=== PATIENT | male | born 1955 | race Caucasian/White ===

== ENCOUNTER 2023-12-24 16:18 | Outpatient (CLI) | payer OTHER, SELFPAY | END 2023-12-24 16:19 | disposition home or self-care (01) | PROVIDERS: PCP Family Medicine; Visit Provider Family Medicine | DX: R03.0 Elevated blood-pressure reading, without diagnosis of hypertension (principal); E78.00 Pure hypercholesterolemia, unspecified; M10.9 Gout, unspecified; Z12.5 Encounter for screening for malignant neoplasm of prostate | CPT/HCPCS: 80053; 80061; 84550; G0103 ==

== ENCOUNTER 2024-01-21 12:24 | Outpatient (CLI) | payer MEDICARE, SELFPAY | END 2024-01-21 12:25 | disposition home or self-care (01) | PROVIDERS: PCP Family Medicine; Visit Provider Family Medicine | DX: Z13.21 Encounter for screening for nutritional disorder (principal); G62.9 Polyneuropathy, unspecified; I10 Essential (primary) hypertension | CPT/HCPCS: 82607; 84443 ==

== ENCOUNTER 2024-01-23 08:02 | Outpatient (CLI) | payer MEDICARE, SELFPAY ==
--- NOTE | 2024-01-23 08:15 | US_ITS ---
Patient: ELISABETH RODAS Facility:?[facility] Patient ID:?[id number] Site Patient ID:?[id number]. Site :?[id number] Study:?US-Abdomen Abdomen Complete-01/23/2024 9:29:15 AM Ordering Physician:Veto Beach Final Report: CLINICAL HISTORY: Abdominal pain FINDINGS: The liver is enlarged measuring 17.2 centimeters increased echogenicity of the liver small cyst in the left hepatic lobe. Slightly nodular contour to liver which can be seen with cirrhosis. Multiple small hyperechoic lesions in the spleen measuring up to approximately 1.2 centimeters. The pancreas poorly seen. The proximal abdominal aorta and IVC appear normal. There is no evidence of ascites. The gallbladder is of normal size and there is no evidence of sludge or stones within the gallbladder lumen. The gallbladder wall measures 2 mm in thickness. The common bile duct measures 5 mm in size within the tessie hepatis. The kidneys appear symmetric. The right kidney measures 12.1 cm in length and the left kidney measures 12.2 cm. There is no evidence of a renal calculus or hydronephrosis. IMPRESSION: 1. Hepatomegaly with hepatic steatosis. Nodular contour to liver which could be seen with cirrhosis. 2. Nonspecific multiple small hyperechoic lesions in the spleen likely benign in the absence of known malignancy.. Dictated by Rosa Phillips MD @ 01/24/2024 6:42:32 AM Signed by:?Rosa Phillips MD @01/25/2024 1:17:17 PM (Electronic Signature)
== END 2024-01-23 08:03 | disposition home or self-care (01) ==
LOC: US 08:04
PROVIDERS: PCP Family Medicine; Visit Provider Family Medicine
DX: R10.9 Unspecified abdominal pain (principal); K76.0 Fatty (change of) liver, not elsewhere classified; D73.89 Other diseases of spleen
CPT/HCPCS: 76700

== ENCOUNTER 2024-02-12 15:27 | Outpatient (CLI) | payer MEDICARE, SELFPAY ==
[2024-02-12 15:50] LABS: Creatinine* 0.8 mg/dL (0.5-1.5); Estimated Glomerular Filt Rate 96 ml/min
--- NOTE | 2024-02-12 16:00 | CRLHL7_ITS ---
For Patients: As a result of the Century Cures Act, medical imaging exams and procedure reports are released immediately into your electronic medical record. You may view this report before your referring provider. If you have questions, please contact your health care provider. INDICATION: Abdominal pain. Liver abnormality seen on ultrasound. TECHNIQUE: CT abdomen and pelvis acquired with IV contrast. Contrast dose was not recorded COMPARISON: 01/23/2024 ultrasound FINDINGS: Lower chest: Unremarkable. Liver: Diffuse hepatic steatosis. 2 cm well-circumscribed low-density lesion in the left hepatic lobe nonspecific on this study but consistent with a cyst on the ultrasound. Gallbladder and bile ducts: Unremarkable. No stones or inflammation. No biliary dilatation. Pancreas: Unremarkable. No mass or inflammation. Spleen: Numerous very small, subtle low-density foci in the spleen corresponding to the echogenic areas seen on the ultrasound. Adrenal glands: Unremarkable. No nodules. Kidneys: Unremarkable. No masses, stones, or hydronephrosis. GI tract: Colonic diverticulosis. No obstruction or inflammation. Vasculature: Atherosclerosis. 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 Lymph nodes: No lymphadenopathy. Omentum/Peritoneum/Abdominal Wall: Unremarkable. No sign of mass or infiltration. No free air or significant free fluid. Pelvis: Unremarkable. Bones: Unremarkable for age. IMPRESSION: 1. Multiple small splenic lesions are nonspecific. Comparison with any prior outside imaging of the spleen recommended if available. Otherwise these could be followed up in 3-6 months. 2. Hepatic steatosis 3. 2 cm left hepatic lobe mass found to be a cyst on the ultrasound. Please note that all CT scans at this facility use dose modulation, iterative reconstruction, and/or weight-based dosing when appropriate to reduce radiation dose to as low as reasonably achievable. Dictated by Abdiaziz Mir MD @ 02/13/2024 11:56:18 AM (Electronically Signed)
== END 2024-02-12 15:28 | disposition home or self-care (01) ==
LOC: CT 15:28
PROVIDERS: PCP Family Medicine; Visit Provider Family Medicine
DX: R10.9 Unspecified abdominal pain (principal); D73.89 Other diseases of spleen; K76.0 Fatty (change of) liver, not elsewhere classified; K76.89 Other specified diseases of liver
CPT/HCPCS: 36415; 74177; 82565; Q9967

== ENCOUNTER 2024-03-02 11:13 | Emergency (ER) | payer MEDICARE, SELFPAY ==
[2024-03-02 11:31] VITALS: BP 159/79; PULSE 78; RESP 16; TEMP 36.6; O2SAT 94; BMI 36.9
--- NOTE | 2024-03-02 11:54 | ED.GENADULT ---
HPI - General Adult General Date Seen: 03/02/24 Chief complaint: Abdominal Pain Stated complaint: abd pain, back pain Time Seen by Provider: 03/02/24 11:50 History of Present Illness HPI narrative: 68-year-old male presenting to the ER today for abdominal pain, bloating, nausea. Medical record review-had clinic visit on 12/23 According to that note he was a new patient. He had been seen at [place]. He had pain on the right side of his torso within normal gallbladder check last year. Possible GERD? . He has neuropathy in his feet. Has a history of gout. Also history of hypertension, polyneuropathy. Labs on 12/23 showed BUN 20, creatinine 0.9, sodium 139, potassium 4.5, bicarb 30, glucose 102, WBC 10.0, hemoglobin 14.5, platelet count 210. triglyceride level elevated at 349 On 01/20 thyroid was normal. T eights 2.7 B12 is normal-312. 5/28-CT abdomen pelvis FINDINGS: Lower chest: Unremarkable. Liver: Diffuse hepatic steatosis. 2 cm well-circumscribed low-density lesion in the left hepatic lobe nonspecific on this study but consistent with a cyst on the ultrasound. Gallbladder and bile ducts: Unremarkable. No stones or inflammation. No biliary dilatation. Pancreas: Unremarkable. No mass or inflammation. Spleen: Numerous very small, subtle low-density foci in the spleen coresponding to the echogenic areas seen on the ultrasound. Adrenal glands: Unremarkable. No nodules. Kidneys: Unremarkable. No masses, stones, or hydronephrosis. GI tract: Colonic diverticulosis. No obstruction or inflammation. Vasculature: Atherosclerosis. 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 Lymph nodes: No lymphadenopathy. Omentum/Peritoneum/Abdominal Wall: Unremarkable. No sign of mass or infiltration. No free air or significant free fluid. Pelvis: Unremarkable. Bones: Unremarkable for age. IMPRESSION: 1. Multiple small splenic lesions are nonspecific. Comparison with any prior outside imaging of the spleen recommended if available. Otherwise these could be followed up in 3-6 months. 2. Hepatic steatosis 3. 2 cm left hepatic lobe mass found to be a cyst on the ultrasound. 01/22 US abdomen FINDINGS: The liver is enlarged measuring 17.2 centimeters increased echogenicity of the liver small cyst in the left hepatic lobe. Slightly nodular contour to liver which can be seen with cirrhosis. Multiple small hyperechoic lesions in the spleen measuring up to approximately 1.2 centimeters. The pancreas poorly seen. The proximal abdominal aorta and IVC appear normal. There is no evidence of ascites. The gallbladder is of normal size and there is no evidence of sludge or stones within the gallbladder lumen. The gallbladder wall measures 2 mm in thickness. The common bile duct measures 5 mm in size within the tessie hepatis. The kidneys appear symmetric. The right kidney measures 12.1 cm in length and the left kidney measures 12.2 cm. There is no evidence of a renal calculus or hydronephrosis. IMPRESSION: 1. Hepatomegaly with hepatic steatosis. Nodular contour to liver which could be seen with cirrhosis. 2. Nonspecific multiple small hyperechoic lesions in the spleen likely benign in the absence of known malignancy. Patient endorses a history of right upper quadrant abdominal pain ongoing since last year, in September. He says he would have episodes of pain that happened every few weeks. They would typically last a few days and then resolve on their own. No clear link to eating greasy or fatty foods. He had been worked up apparently a [facility] and had a normal gallbladder ultrasound and some normal labs. He and his went on a trip to [place] over the winter and since November he has had worsening symptoms. He still has episodes of right upper quadrant abdominal pain that come and go. Since November he has also noted where he is having episodes of epigastric discomfort and bloating. He says he will have. When he eats that he has early satiety and a very bloated feeling as if the food is not leaving his stomach. No vomiting. No hematemesis. Normal bowel movements. No diarrhea. No black or bloody stools. Normal urination. No fevers or chills. Since Sunday, when he had the pizza for the 1st time in a couple of weeks he has had another episode of pain. This pain is in the epigastrium but also more diffuse. His abdomen feels bloated. He feels like food is not leaving from his stomach. He has had a poor appetite, pain with movement and pain with palpation of his abdomen. No fever. He was able to eat few beans yesterday for dinner, not because he was hungry but because he knew he had eat something. No vomiting but he has been nauseous. Normal bowel movements over the weekend. Normal urination. He recalls he recently had a ultrasound that did not show any gallstones. He recently had a CT scan that apparently showed a celiac artery aneurysm. He is due for another checkup with his primary doctor next week but due to his worsening pain, he wanted to get checked out. He is worried something might rupture or caused internal bleeding. He is not having any lightheadedness. He is not anticoagulated. He has a history of neuropathy affecting his feet causing pins and needles and numbness. He does not have any history of vascular disease, peripheral artery disease, coronary disease. No history of AFib. His doctor is set him up for leg ultrasound just to check the circulation and that is due later this week. He does not have any history of peptic ulcer disease. He has not recently had any EGD or colonoscopy. Related Data Home Medications ?Medication ?Instructions ?Recorded ?Confirmed gabapentin 600 mg tablet 600 mg PO BID 12/26/23 03/02/24 Previous Rx's ?Medication ?Instructions ?Recorded allopurinol 100 mg tablet 100 mg PO QDAY #90 tabs 01/14/24 losartan 50 mg tablet 50 mg PO QDAY #90 tabs 01/21/24 omeprazole 40 mg capsule,delayed 40 mg PO DAILY #30 caps 03/02/24 release Allergies Allergy/AdvReac Type Severity Reaction Status Date / Time No Known Drug Allergies Allergy Verified 03/02/24 12:46 [facility] Medical History (Updated 03/02/24 @ 14:54 by Yash Garcia MD) Leg pain ?M79.606 - Pain in leg, unspecified (ICD-10) Hypertension ?I10 - Essential (primary) hypertension (ICD-10) Peripheral neuropathy ?G62.9 - Polyneuropathy, unspecified (ICD-10) Gout ?M10.9 - Gout, unspecified (ICD-10) Medicare annual wellness visit, subsequent ?Z00.00 - Encounter for general adult medical examination without abnormal findings (ICD-10) Social History Smoking Status: Former smoker How often do you have a drink containing alcohol: 2-4 times a month How often do you have six or more drinks on one occasion: Never AUDIT-C Alcohol total score: 2 Non-prescribed substance use: denies use and marijuana (any form) Little interest or pleasure in doing things: several days Feeling down, depressed, or hopeless: not at all service: No Exam Narrative: Exam Narrative: Constitutional: Appears well-developed and well-nourished. Alert. Conversant. Non toxic. HENT: Head: Atraumatic. Nose: Nose normal. Mouth/Throat: Oral mucosa is clear and moist. no trismus. Pharynx normal. Eyes: Conjunctivae normal. EOM normal. Pupils equal, round, and reactive to light. No scleral icterus. Neck: Normal range of motion. Neck supple. No tracheal deviation present. Cardiovascular: Normal rate, regular rhythm. No gallop. No friction rub. No murmur heard. Symmetric radial artery pulses Pulmonary/Chest: Effort normal. No stridor. No respiratory distress. No wheezes. No rales. No rhonchi . No tenderness. Abdominal: Soft. Bowel sounds normal. Mildly protuberant but not tympanic. No distension. No mass. Left upper quadrant and left lower quadrant and epigastric> right lower quad> right upper quadrant tenderness. No pulsatile mass. No CVA tenderness. No rebound. No guarding. Musculoskeletal: RUE: Normal range of motion. No tenderness. No deformity LUE: Normal range of motion. No tenderness. No deformity RLE: Normal range of motion. No edema. No tenderness. No deformity LLE: Normal range of motion. No edema. No tenderness. No deformity Neurological: Alert and oriented to person, place, and time. Normal strength. CN II-VII intact. No sensory deficit. GCS eye subscore is 4. GCS verbal subscore is 5. GCS motor subscore is 6. Normal coordination Skin: Skin is warm and dry. No rash noted. No pallor. Normal capillary refill. Psychiatric: Normal mood. Normal affect. Const: Vital Signs, click to edit/add: Vital Signs - 24 hr 03/02/24 11:31 03/02/24 13:03 Temperature 97.8 F Pulse Rate [Right Pulse Oximeter] 78 81 Respiratory Rate 16 14 Blood Pressure [Ri ght Upper Arm] 159/79 H 133/78 Pulse Oximetry 94 97 Oxygen Delivery Me thod Room Air Room Air Course Vital Signs Vital signs: Initial Vital Signs Temperature 97.8 F 03/02/24 11:31 Temperature Source Temporal Artery Scan 03/02/24 11:31 Pulse Rate 78 03/02/24 11:31 Respiratory Rate 16 03/02/24 11:31 Blood Pressure 159/79 H 03/02/24 11:31 Blood Pressure Mean 105 03/02/24 11:31 Blood Pressure Position Sitting 03/02/24 11:31 Pulse Oximetry 94 03/02/24 11:31 Oxygen Delivery Method Room Air 03/02/24 11:31 Vital Signs Temperature 97.8 F 03/02/24 11:31 Pulse Rate 78 03/02/24 11:31 Respiratory Rate 16 03/02/24 11:31 Blood Pressure 159/79 H 03/02/24 11:31 Pulse Oximetry 94 03/02/24 11:31 Oxygen Delivery Method Room Air 03/02/24 11:31 Temperature 97.8 F 03/02/24 11:31 Pulse Rate 81 03/02/24 13:03 Respiratory Rate 14 03/02/24 13:03 Blood Pressure 133/78 03/02/24 13:03 Pulse Oximetry 97 03/02/24 13:03 Oxygen Delivery Method Room Air 03/02/24 13:03 Medical Decision Making MDM Narrative Medical decision making narrative: Presented to the Emergency Department with I history of intermittent right upper quadrant pain (previous workup with normal gallbladder ultrasound, no findings on CT last month), now with a 3 day history of epigastric and more generalized abdominal pain. He has a distant history of appendectomy but no other surgery. 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 Patient is concerned that The differential diagnosis of abdominal pain includes: Bowel Obstruction, Ulcer, Ischemia, Cholecystitis, Diverticulitis, Pancreatitis, UTI, kidney stone, Enteritis/Colitis, amongst many other etiologies. Laboratory testing does not reveal a cause for the patient's pain. Repeat CT Imaging is noted to be normal. No sign of new bowel obstruction, diverticulitis, enteritis. Previously mentioned celiac artery aneurysm is not commented on today. Suspect this iliac artery may be upper limits of normal. He does have previously mentioned hepatic cysts and nonspecific splenic lesions which are likely not contributing to his symptom. New finding on the CT today is signs of distal esophagitis. The exact etiology of the abdominal pain is not clear at this time. No life threatening cause or need for emergent surgery or hospital admission is detected today. However with predominantly upper epigastric pain and signs of esophagitis on the CT I wonder if he may be having gastritis or peptic ulcer disease. The patient was advised that if symptoms do not completely resolve within another 24-36 hours re-evaluation with primary care or return to the ED is indicated. The patient also understands that if they worsen, they should return to the ER right away. I discussed the uncertainty about the diagnosis and answered the patient's questions. Abdominal pain return precautions discussed. We will set the patient up for an outpatient endoscopy to further evaluate stomach and esophagus. Will start him on empiric course of omeprazole. He will also follow-up with his primary care provider this week for re-evaluation. Lab Data Labs: Lab Results 03/02/24 03/02/24 Range/Units 13:01 13:10 WBC 6.96 (4.50-11.00) K/uL RBC 4.34 (4.30-5.90) m/uL Hgb 13.4 L (13.5-17.5) gm/dL Hct 40.7 (37.0-53.0) % MCV 94 (80-100) fL MCH 31 (26-34) pg MCHC 33 (32-36) gm/dL RDW Coeff of Raúl 12.7 (11.5-15.5) % Plt Count 164 (140-440) K/uL Neut % (Auto) 68.0 (42.0-72.0) % Lymph % (Auto) 20.3 (20-44) % [place] % (Auto) 9.9 (0.0-11.0) % Eos % (Auto) 1.7 (0.0-7.0) % Baso % (Auto) 0.0 (0.0-3.0) % Neut # (Auto) 4.73 (1.7-7.0) K/uL Lymph # (Auto) 1.41 (0.90-2.90) K/uL [place] # (Auto) 0.70 (0.00-0.90) K/UL Eos # (Auto) 0.12 (0.00-0.50) K/uL Baso # (Auto) 0.00 (0.00-0.30) K/uL Abs Immat Gran (auto) 0.01 (0.00-0.30) K/uL Imm/Tot Granulo (auto) 0.1 % Sodium 133 L (135-149) mmol/L Potassium 4.2 (3.6-5.1) mmol/L Chloride 102 (96-114) mmol/L Carbon Dioxide 26 (20-32) mmol/L Anion Gap 5 L (7-15) mEq/L BUN 15 (7-30) mg/dL Creatinine 0.8 (0.5-1.5) mg/dL Estimated Creat Clear 78.79 Estimated GFR 96 ml/min Glucose 100 (60-115) mg/dL Lactate 1.0 (0.5-1.9) mmol/L Calcium 8.3 L (8.4-10.6) mg/dL Total Bilirubin 0.6 (0.1-1.5) mg/dL AST 21 (12-35) U/L ALT 23 (4-50) U/L Alkaline Phosphatase 61 (40-150) U/L Total Protein 6.2 (6.0-8.3) g/dL Albumin 3.9 (3.3-5.0) g/dL Lipase 64 (23-300) U/L Urine Color Yellow (Yellow) Urine Appearance Clear (Clear) Urine pH 5.5 (5.0-8.5) Ur Specific [place] 1.010 (1.000-1.030) Urine Protein Negative (Negative) Urine Glucose (UA) Negative (Negative) Urine Ketones Negative (Negative) Urine Blood Negative (Negative) Urine Nitrite Negative (Negative) Urine Bilirubin Negative (Negative) Urine Urobilinogen 0.2 (0.2-1.0) Ur Leukocyte Esterase Negative (Negative) Urine RBC 0-2 (0-2) Urine WBC 0-2 (0-5) Ur Squamous Epith Cells Few (None-Few) Urine Bacteria None (None) Imaging Data CT scan - abdomen: Attestation: I have reviewed the pertinent imaging results. Radiologist's impression: IMPRESSION: 1. No acute findings. 2. Distal esophagus is thick-walled. This is usually due to esophagitis however can indicate neoplasm. Consider EGD. 3. Stable small splenic lesions. ECG Data Attestation: I personally reviewed and interpreted this ECG as follows: Interpretation: Normal sinus rhythm Rate: 68 NM: 160 a QRS axis: Normal. No pathologic Q-waves ST segment/T wave: No ST segment elevation or depression QTc: 433 Discharge Plan Discharge Clinical Impression: Abdominal pain, Esophagitis Patient Disposition: Home, Self-Care Condition: Stable Instructions: Abdominal Pain (ED), Esophagitis (ED) Additional Instructions: As we discussed, the cause for your pain is not clear at this time. It could be related to stomach acid yang and acid yang in the bottom end of your esophagus. I have started a referral for an endoscopy to check out your esophagus and stomach. You should receive a phone call from the clinic tomorrow to set up a time to get that study done. However if you do not receive a call by noon, call [phone] to schedule your appointment. Please start on the stomach acid medication-omeprazole once daily. Take it until you have your follow-up visit with her doctor. 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 If you have worsening symptoms especially worsening pain, vomiting, bloody or black stools, fever, come back to the ER right away to be rechecked. Please recheck with your doctor within the next week to follow up about the results of your endoscopy. Prescriptions: New omeprazole 40 mg capsule,delayed release(DR/EC) 40 mg PO DAILY Qty: 30 0RF No Action losartan 50 mg tablet 50 mg PO QDAY Qty: 90 3RF gabapentin 600 mg tablet 600 mg PO BID allopurinol 100 mg tablet 100 mg PO QDAY Qty: 90 3RF Follow Up/Referrals: Veto Albrecht MD [Primary Care Provider] - Stand Alone Forms: [employer] Info Instructions
--- NOTE | 2024-03-02 12:20 | CRLHL7_ITS ---
For Patients: As a result of the Century Cures Act, medical imaging exams and procedure reports are released immediately into your electronic medical record. You may view this report before your referring provider. If you have questions, please contact your health care provider. INDICATION: Abdominal pain, bloating, nausea TECHNIQUE: CT abdomen and pelvis acquired with 137 mL Isovue 370 IV contrast. COMPARISON: 02/12/[address] FINDINGS: Lower chest: Unremarkable. Liver: Hepatic steatosis. Stable left hepatic lobe cyst. Gallbladder and bile ducts: Unremarkable. No stones or inflammation. No biliary dilatation. Pancreas: Unremarkable. No mass or inflammation. Spleen: Numerous low-density lesions are unchanged. Adrenal glands: Unremarkable. No nodules. Kidneys: Unremarkable. No masses, stones, or hydronephrosis. GI tract: Thickened distal esophagus, potentially esophagitis or neoplasm. Colonic diverticulosis. No diverticulitis. Appendix not visible and by history has been surgically removed. No inflammation or obstruction of the GI tract. Vasculature: Atherosclerosis. Mesenteric arteries are patent. Lymph nodes: No lymphadenopathy. Omentum/Peritoneum/Abdominal Wall: Unremarkable. No sign of mass or infiltration. No free air or significant free fluid. Pelvis: Unremarkable. Bones: Unremarkable for age. IMPRESSION: 1. No acute findings. 2. Distal esophagus is thick-walled. This is usually due to esophagitis however can indicate neoplasm. Consider EGD. 3. Stable small splenic lesions. Please note that all CT scans at this facility use dose modulation, iterative reconstruction, and/or weight-based dosing when appropriate to reduce radiation dose to as low as reasonably achievable. Dictated by Abdiaziz Mir MD @ 03/02/2024 2:24:12 PM (Electronically Signed)
[2024-03-02 13:03] VITALS: BP 133/78; PULSE 81; RESP 14; O2SAT 97
[2024-03-02 13:10] LABS: Eosinophils Absolute Auto 0.12 K/uL (0.00-0.50); Eosinophils Percent Auto 1.7 % (0.0-7.0); Hematocrit 40.7 % (37.0-53.0); Hemoglobin* 13.4 gm/dL (13.5-17.5); Immature Granulocytes Abs Auto 0.01 K/uL (0.00-0.30); Immature Granulocytes Pct Auto 0.1 %; Lymphocytes Absolute Auto 1.41 K/uL (0.90-2.90); Lymphocytes Percent Auto 20.3 % (20-44); Mean Corpuscular HGB Conc 33 gm/dL (32-36); Mean Corpuscular Hemoglobin 31 pg (26-34); Mean Corpuscular Volume 94 fL (80-100); Monocytes Percent Auto 9.9 % (0.0-11.0); Neutrophils Absolute Auto 4.73 K/uL (1.7-7.0); Platelet Count* 164 K/uL (140-440); RDW Coefficient of Variation % 12.7 % (11.5-15.5); Red Blood Count 4.34 m/uL (4.30-5.90); White Blood Count* 6.96 K/uL (4.50-11.00)
[2024-03-02 13:15] LABS: Appearance Urine Clear (Clear); Bilirubin Urine Negative (Negative); Blood Urine Negative (Negative); Color Urine Yellow (Yellow); Glucose Urine Negative (Negative); Ketones Urine Negative (Negative); Leukocyte Esterase Urine Negative (Negative); Nitrite Urine Negative (Negative); Protein Urine Negative (Negative); Urobilinogen Urine 0.2 (0.2-1.0); pH Urine 5.5 (5.0-8.5)
[2024-03-02 13:16] VITALS: PULSE 70; O2SAT 96
[2024-03-02 13:17] VITALS: BP 133/78; PULSE 76; O2SAT 96
[2024-03-02 13:21] LABS: Slide Review Reflex No
[2024-03-02 13:29] LABS: RBC Urine 0-2 (0-2); Squamous Epithelial Cell Urine Few (None-Few); WBC Urine 0-2 (0-5)
[2024-03-02 13:36] LABS: Chloride* 102 mmol/L (96-114)
[2024-03-02 13:37] LABS: Albumin* 3.9 g/dL (3.3-5.0); Sodium* 133 mmol/L (135-149)
[2024-03-02 13:38] LABS: Potassium* 4.2 mmol/L (3.6-5.1)
[2024-03-02 13:40] LABS: Alanine Aminotransferase* 23 U/L (4-50); Alkaline Phosphatase* 61 U/L (40-150); Anion Gap 5 mEq/L (7-15); Aspartate Amino Transferase* 21 U/L (12-35); Bilirubin Total* 0.6 mg/dL (0.1-1.5); Blood Urea Nitrogen* 15 mg/dL (7-30); Carbon Dioxide* 26 mmol/L (20-32); Creatinine* 0.8 mg/dL (0.5-1.5); Est. Creatinine Clearance* 78.79; Estimated Glomerular Filt Rate 96 ml/min; Glucose* 100 mg/dL (60-115); Lipase* 64 U/L (23-300); Total Protein* 6.2 g/dL (6.0-8.3)
[2024-03-02 13:41] LABS: Calcium* 8.3 mg/dL (8.4-10.6)
[2024-03-02 15:15] VITALS: BP 140/73; PULSE 76; RESP 20
== END 2024-03-02 15:21 | disposition home or self-care (01) ==
PROVIDERS: Emergency Provider Emergency Medicine; PCP Family Medicine
DX: R10.9 Unspecified abdominal pain (principal); K20.90 Esophagitis, unspecified without bleeding
CPT/HCPCS: 36415; 74177; 80053; 81001; 83605; 83690; 85025; 99283; 99284; 99285; Q9967

== ENCOUNTER 2024-03-06 06:27 | Outpatient (CLI) | payer MEDICARE, SELFPAY ==
--- NOTE | 2024-03-06 07:38 | W.ANESCHARGE ---
Anesthesia Charges Start Date/Time Anesthesia Start Date: 03/06/24 Anesthesia Start Time: 07:15 Stop Date/Time Anesthesia Stop Date: 03/06/24 Anesthesia Stop Time: 07:34
== END 2024-03-06 06:28 | disposition home or self-care (01) ==
LOC: OP CLINIC 06:27
PROVIDERS: PCP Family Medicine; Visit Provider Surgery
DX: R13.10 Dysphagia, unspecified (principal); K31.89 Other diseases of stomach and duodenum; R10.84 Generalized abdominal pain
CPT/HCPCS: 00731; 43239; 88305; J2704; J3010

== ENCOUNTER 2024-03-10 12:22 | Outpatient (CLI) | payer MEDICARE, SELFPAY | END 2024-03-10 12:23 | disposition home or self-care (01) | LOC: US 12:23 | PROVIDERS: PCP Family Medicine; Visit Provider Family Medicine | DX: E11.42 Type 2 diabetes mellitus with diabetic polyneuropathy (principal); I25.10 Atherosclerotic heart disease of native coronary artery without angina pectoris; I10 Essential (primary) hypertension | CPT/HCPCS: 93922 ==

== ENCOUNTER 2024-04-01 14:34 | Outpatient (CLI) | payer MEDICARE, SELFPAY ==
[2024-04-01] MEDS: PERFLUTREN LIPID MICROSPHERES 2 ML VIAL IV (15:20)
[2024-04-01 15:51] VITALS: BP 174/80; PULSE 87
--- NOTE | 2024-04-01 16:05 | P.STN_ITS ---
Stress Test Note Date Date Seen: 04/01/24 Date of test: 04/01/24 Providers Referring provider: Veto Albrecht Primary care provider: Veto Albrecht Stress test physician: Ly Moss Stress Test Note Stress test ordered: Stress Echo Indication for test: Epigastric pain, heart scan with coronary calcifications Stress test medicine: [facility] Results discussion: Resting EKG: Sinus rhythm, 71 beats per minute Resting blood pressure: 134/81 Stress test: Patient was consented on stress test ordered. He agrees to proceed. Patient exercised on the treadmill following standard Caio protocol treadmill for stress echo. He exercise to 7 minutes 31 seconds, stopping due to reaching his heart rate in reaching his exercise capacity. This was equivalent to 9.1 Mets. He did reach maximum heart rate of 155 beats per minute which was 121% of a calculated target heart rate of 128. He had a maximal blood pressure during exercise 170/80 giving him a rate pressure product of 24,310. He did have post exercise hypertension but was asymptomatic. Outside of feeling short of breath which she felt would be consistent with his level of work, patient was asymptomatic. There was no arrhythmia noted. He had no evidence of any diagnostic ischemic change on the EKG. Await echo images to couple this for a full formal report. Impression: Subjectively negative, objectively negative EKG portion of this stress test. Follow up suggested: Patient plans on either seen his results on the portal or will plan on hearing back from his primary care provider. Discharge from here in stable condition. We did discuss prior to discharge about watching his blood pressure closely and making sure that blood pressure is adequately controlled, he will work with his primary care provider on this.
== END 2024-04-01 14:35 | disposition home or self-care (01) ==
LOC: STRESS 14:35
PROVIDERS: PCP Family Medicine; Visit Provider Family Medicine
DX: R10.13 Epigastric pain (principal); I25.10 Atherosclerotic heart disease of native coronary artery without angina pectoris
CPT/HCPCS: 93016; 93325; 93351; Q9957

== ENCOUNTER 2025-01-01 08:11 | Outpatient (CLI) | payer MEDICARE, SELFPAY | END 2025-01-01 08:12 | disposition home or self-care (01) | PROVIDERS: PCP Family Medicine; Visit Provider Family Medicine | DX: I10 Essential (primary) hypertension (principal); I25.10 Atherosclerotic heart disease of native coronary artery without angina pectoris; G62.9 Polyneuropathy, unspecified; M10.9 Gout, unspecified; Z13.1 Encounter for screening for diabetes mellitus; Z12.5 Encounter for screening for malignant neoplasm of prostate | CPT/HCPCS: 80053; 80061; 82947; 84550; G0103 ==

== ENCOUNTER 2025-09-11 09:56 | Outpatient (CLI) | payer MEDICARE, SELFPAY | END 2025-09-11 09:57 | disposition home or self-care (01) | PROVIDERS: PCP Family Medicine; Visit Provider Family Medicine | DX: I10 Essential (primary) hypertension (principal); I25.10 Atherosclerotic heart disease of native coronary artery without angina pectoris; R73.03 Prediabetes; R10.9 Unspecified abdominal pain | CPT/HCPCS: 80053 ==